=== PATIENT | male | born 1960 | race Caucasian/White ===

== ENCOUNTER 2016-11-06 09:21 | Observation (INO) | payer OTHER ==
[~2016-11-06] VITALS: Ht 172.7 cm; Wt 126.0 kg
[2016-11-06] MEDS ORDERED: ONDANSETRON 4 MG VIAL IV PUSH PRN (09:25)
[2016-11-06] MEDS ORDERED: ACETAMINOPHEN 325 MG TAB PO PRN (09:25)
[2016-11-06] MEDS ORDERED: DIPHENOXYLATE/ATROP TAB 2.5 MG TAB PO PRN (09:25)
[2016-11-06] MEDS: RIFAXIMIN 550 MG TAB PO SCH ×2 (09:25→20:07)
[2016-11-06 11:16] VITALS: BP_SYST 158; RESP 20; TEMP 97
[2016-11-06 11:21] VITALS: Ht 172.7 cm; Wt 126.0 kg
[2016-11-06] MEDS: METRONIDAZOLE 500MG/100ML 100 ML IV SCH ×3 (12:04→23:06)
[2016-11-06] MEDS: SODIUM CHLORIDE 0.45% 1,000 ML IV SCH ×2 (12:08→23:06)
[2016-11-06 15:59] VITALS: BP_SYST 134; RESP 20; TEMP 97.5
[2016-11-06] MEDS: ATENOLOL 25 MG TAB PO SCH (17:20)
[2016-11-06] MEDS: FAMOTIDINE 20 MG TAB PO SCH (17:20)
[2016-11-06 20:11] VITALS: BP_SYST 130; RESP 18; TEMP 97.1
[2016-11-07] VITALS: BP_SYST 132; RESP 18; TEMP 97.4
[2016-11-07 04:00] VITALS: BP_SYST 134; RESP 18; TEMP 97.3
[2016-11-07] MEDS: METRONIDAZOLE 500MG/100ML 100 ML IV SCH (05:50)
[2016-11-07 07:23] VITALS: BP_SYST 163; RESP 20; TEMP 97.3
[2016-11-07] MEDS: ATENOLOL 25 MG TAB PO SCH (07:42)
[2016-11-07] MEDS: RIFAXIMIN 550 MG TAB PO SCH (07:42)
[2016-11-07] MEDS: FAMOTIDINE 20 MG TAB PO SCH (07:43)
[2016-11-07 11:05] VITALS: BP_SYST 163; RESP 20; TEMP 97.3
== END 2016-11-07 08:17 | disposition home or self-care (01) ==
LOC: ENRESERVTM → ENRESERVDT → PREINTOOBSV 09:40 → ENPENDDIS 10:36 → 4THE 10:36
PROVIDERS: ADMIT Internal Medicine Nephrology; ATTEND Internal Medicine Nephrology
DX: A04.7 Enterocolitis due to Clostridium difficile (principal); R19.7 Diarrhea, unspecified; E66.9 Obesity, unspecified; I10 Essential (primary) hypertension; R74.8 Abnormal levels of other serum enzymes; F17.220 Nicotine dependence, chewing tobacco, uncomplicated; Z79.2 Long term (current) use of antibiotics
CPT/HCPCS: 80053; 85025; 87493